=== PATIENT | female | born 1965 | race Caucasian/White ===

== ENCOUNTER 2020-07-01 14:45 | Emergency (ER) | payer OTHER ==
[~2020-07-01 14:45] MED LIST: AIMOVIG AU70 MG/1 ML IM; ALL DAY ALLERGY10 M3 PO; AMITRIPTYLINE PO; ASPIRIN EC81 MG PO; BENTYL10 MG PO; BREO ELLIPTA 11 EACH INH; CO-ENZYME Q101 EACH PO; COREG 3.125M3.125 MG PO; FLONASE ALLER15.8 ML; HCTZ12.5 MG PO; IMITREX SQ6 MG/0.5 M SC; LEXAPRO20 MG PO; MAG-OXIDE 400M400 MG PO; NAPROSYN375 MG PO; NEURONTIN300 MG PO; PHENERGAN25 M1 PO; PRILOSEC20 MG PO; PRINIVIL20 MG PO; PROCTOZONE-HC 230 GM TOP; RIBOFLAVIN400 MG PO; RIZATRIPTAN10 M1 PO; SUMAVEL DO4 MG/0.5 M; TROKENDI XR200 MG PO; VENTOLIN HFA IN18 GM INH; VITAMIN D1000 UNIT PO; VSL#3 DS PACKE1 EACH PO
[2020-07-01 16:01] LABS: BASOPHIL 0.7 % (0-2); HCT 41.3 % (37.0-47.0); HGB 12.9 g/dl (12.5-16.0); MCH 28.6 pg (25.0-31.0); MCHC 31.2 g/dL (32.0-36.0); MCV 91.6 fL (78.0-100.0); MONOCYTE 8.9 % (0-12); MPV 9.1 fL (6.0-9.5); NRBC 0; PLT 317 K/uL (150-400); RBC 4.51 M/uL (4.20-5.40); RDW 13.9 % (11.5-14.0); WBC 9.2 K/uL (4.0-10.5)
[2020-07-01 16:24] LABS: ALBUMIN 3.2 g/dL (3.4-5.0); ALKALINE PHOSHATASE 70 U/L (46-116); ALT 30 U/L (14-59); AST 27 U/L (15-37); BILIRUBIN - TOTAL 0.5 mg/dL (0.2-1.0); BUN 13 mg/dL (7-18); BUN/CREAT RATIO (CALC) 13.5 RATIO; CHLORIDE 108 mmol/L (98-107); CO2 (BICARBONATE) 26 mmol/L (21-32); CREATININE 0.96 mg/dL (0.51-0.95); GLOBULIN (CALCULATION) 3.9 g/dL; GLUCOSE 111 mg/dL (74-106); TOTAL PROTEIN 7.1 g/dL (6.4-8.2)
[2020-07-01 17:17] LABS: AMPHETAMINES NEGATIVE (NEGATIVE); BARBITURATES NEGATIVE (NEGATIVE); ECSTASY (MDMA) NEGATIVE (NEGATIVE); MARIJUANA (THC) NEGATIVE (NEGATIVE); METHADONE NEGATIVE (NEGATIVE); OPIATES NEGATIVE (NEGATIVE); OXYCODONE NEGATIVE (NEGATIVE)
[2020-07-01 17:18] LABS: BILIRUBIN NEGATIVE (NEGATIVE); BLOOD TRACE-LYSED Ery/uL (NEGATIVE); CLARITY CLEAR (CLEAR); COLOR YELLOW (YELLOW); GLUCOSE (U) NORMAL (NORMAL); LEUKOCYTES NEGATIVE Leu/uL (NEGATIVE); NITRITE NEGATIVE (NEGATIVE); PROTEIN NEGATIVE (NEGATIVE); UROBILINOGEN 0.2 mg/dL (0.2-1.0)
[2020-07-01 17:25] LABS: SQUAMOUS EPITHELIAL CELLS RARE; URINARY RBC RARE; URINARY WBC RARE
== END 2020-07-01 19:10 | disposition home or self-care (01) ==
LOC: FER 14:45
PROVIDERS: Emergency Medicine
DX: R55 Syncope and collapse (principal); R51.9 Headache, unspecified; R07.9 Chest pain, unspecified; I10 Essential (primary) hypertension; Z20.822 Contact with and (suspected) exposure to COVID-19
CPT/HCPCS: 36415; 70450; 71045; 80053; 80305; 81001; 84484; 85025; 93005; G0480; J0780; J1885; U0002

== ENCOUNTER 2020-08-28 18:32 | Emergency (ER) | payer OTHER ==
[2020-08-28 19:43] LABS: BASOPHIL 0.7 % (0-2); EOSINOPHIL 3.6 % (0-5); HCT 38.6 % (37.0-47.0); HGB 12.6 g/dl (12.5-16.0); LYMPHOCYTE 21.5 % (15-48); MCH 29.1 pg (25.0-31.0); MCHC 32.6 g/dL (32.0-36.0); MCV 89.1 fL (78.0-100.0); MONOCYTE 7.6 % (0-12); MPV 9.4 fL (6.0-9.5); NRBC 0; PLT 320 K/uL (150-400); RBC 4.33 M/uL (4.20-5.40); RDW 14.4 % (11.5-14.0); WBC 9.7 K/uL (4.0-10.5)
[2020-08-28 20:00] LABS: BUN/CREAT RATIO (CALC) 14.6 RATIO; CREATININE 0.82 mg/dL (0.51-0.95); POTASSIUM 4.2 mmol/L (3.5-5.1)
== END 2020-08-28 23:05 | disposition home or self-care (01) ==
LOC: FER 18:32
PROVIDERS: Nurse Practitioner Family
DX: G43.909 Migraine, unspecified, not intractable, without status migrainosus (principal); I10 Essential (primary) hypertension; J45.909 Unspecified asthma, uncomplicated; E78.5 Hyperlipidemia, unspecified; Z88.0 Allergy status to penicillin; Z91.030 Bee allergy status; Z88.8 Allergy status to other drugs, medicaments and biological substances; Z91.040 Latex allergy status; Z79.899 Other long term (current) drug therapy; Z79.82 Long term (current) use of aspirin
CPT/HCPCS: 36415; 70450; 72125; 80048; 85025; J1100; J1170; J1885; J2405; J7030

== ENCOUNTER 2020-10-15 19:07 | Emergency (ER) | payer OTHER ==
[2020-10-15 21:24] LABS: BASOPHIL 0.8 % (0-2); EOSINOPHIL 3.8 % (0-5); HCT 42.6 % (37.0-47.0); HGB 13.6 g/dl (12.5-16.0); LYMPHOCYTE 23.5 % (15-48); MCH 28.9 pg (25.0-31.0); MCHC 31.9 g/dL (32.0-36.0); MCV 90.6 fL (78.0-100.0); MONOCYTE 7.9 % (0-12); MPV 9.1 fL (6.0-9.5); NRBC 0; PLT 368 K/uL (150-400); RDW 14.2 % (11.5-14.0); WBC 8.8 K/uL (4.0-10.5)
[2020-10-15 21:29] LABS: INR 1.03 (0.9-1.2); PROTHROMBIN TIME 12.8 SECONDS (11.4-13.6); PTT 30.1 SECONDS (22.2-34.7)
[2020-10-15 21:34] LABS: ALBUMIN 3.4 g/dL (3.4-5.0); BILIRUBIN - TOTAL 0.4 mg/dL (0.2-1.0); BUN/CREAT RATIO (CALC) 10.7 RATIO; CREATININE 0.84 mg/dL (0.51-0.95); GLOBULIN (CALCULATION) 4.3 g/dL; POTASSIUM 3.7 mmol/L (3.5-5.1); TOTAL PROTEIN 7.7 g/dL (6.4-8.2)
== END 2020-10-16 01:44 | disposition home or self-care (01) ==
LOC: FER 19:07
PROVIDERS: Emergency Medicine Emergency Medical Services
DX: S06.0X0A Concussion without loss of consciousness, initial encounter (principal); G43.909 Migraine, unspecified, not intractable, without status migrainosus; I10 Essential (primary) hypertension; J45.909 Unspecified asthma, uncomplicated; K21.9 Gastro-esophageal reflux disease without esophagitis; Z88.0 Allergy status to penicillin; Z88.8 Allergy status to other drugs, medicaments and biological substances; Z91.030 Bee allergy status; Z91.040 Latex allergy status; Z79.899 Other long term (current) drug therapy; Z79.82 Long term (current) use of aspirin; W19.XXXA Unspecified fall, initial encounter; Y93.K1 Activity, walking an animal; Y92.480 Sidewalk as the place of occurrence of the external cause
CPT/HCPCS: 36415; 70450; 71045; 72125; 73080; 80053; 84484; 85025; 85610; 85730; 93005; 96372; G0480; J0780; J1100; J1200; J1885; J3030; J7030

== ENCOUNTER 2021-01-25 15:49 | Emergency (ER) | payer OTHER ==
[2021-01-25 17:10] LABS: BASOPHIL 0.8 % (0-2); HCT 41.7 % (37.0-47.0); LYMPHOCYTE 21.6 % (15-48); MCH 28.5 pg (25.0-31.0); MCHC 31.2 g/dL (32.0-36.0); MCV 91.4 fL (78.0-100.0); MPV 10.2 fL (6.0-9.5); NRBC 0; PLT 331 K/uL (150-400); RBC 4.56 M/uL (4.20-5.40); RDW 14.1 % (11.5-14.0); WBC 9.8 K/uL (4.0-10.5)
[2021-01-25 17:36] LABS: BUN/CREAT RATIO (CALC) 15.9 RATIO; CREATININE 1.07 mg/dL (0.51-0.95)
== END 2021-01-25 18:34 | disposition home or self-care (01) ==
LOC: FER 15:49
PROVIDERS: Emergency Medicine
DX: G43.909 Migraine, unspecified, not intractable, without status migrainosus (principal); R55 Syncope and collapse; E11.9 Type 2 diabetes mellitus without complications; Z90.49 Acquired absence of other specified parts of digestive tract; Z88.0 Allergy status to penicillin; Z88.7 Allergy status to serum and vaccine
CPT/HCPCS: 36415; 36600; 70450; 71045; 80048; 82803; 84484; 85025; 93005; J1200; J2405; J2765

== ENCOUNTER 2021-05-28 14:39 | Emergency (ER) | payer OTHER ==
[2021-05-28 15:29] LABS: BASOPHIL 0.9 % (0-2); EOSINOPHIL 3.4 % (0-5); HCT 42.1 % (37.0-47.0); HGB 13.6 g/dl (12.5-16.0); LYMPHOCYTE 21.2 % (15-48); MCH 29.7 pg (25.0-31.0); MCHC 32.3 g/dL (32.0-36.0); MCV 91.9 fL (78.0-100.0); MONOCYTE 8.2 % (0-12); MPV 9.5 fL (6.0-9.5); NEUTROPHIL 65.9 % (41-80); NRBC 0; PLT 375 K/uL (150-400); RBC 4.58 M/uL (4.20-5.40); RDW 14.1 % (11.5-14.0); WBC 8.9 K/uL (4.0-10.5)
[2021-05-28 15:41] LABS: ALBUMIN 3.6 g/dL (3.4-5.0); BILIRUBIN - TOTAL 0.4 mg/dL (0.2-1.0); BUN/CREAT RATIO (CALC) 12.7 RATIO; C-REACTIVE PROTEIN 1.7 mg/dL (<=0.90); CREATININE 1.02 mg/dL (0.51-0.95); GLOBULIN (CALCULATION) 3.8 g/dL; POTASSIUM 4.2 mmol/L (3.5-5.1); TOTAL PROTEIN 7.4 g/dL (6.4-8.2)
[2021-05-28 16:17] LABS: CORONAVIRUS 2019 SARS-COV-2 NEGATIVE (NEGATIVE); INFLUENZA A NAA NEGATIVE (NEGATIVE)
[2021-05-28 16:32] LABS: BILIRUBIN NEGATIVE (NEGATIVE); BLOOD TRACE-INTACT Ery/uL (NEGATIVE); CLARITY CLEAR (CLEAR); COLOR YELLOW (YELLOW); GLUCOSE (U) NORMAL (NORMAL); LEUKOCYTES NEGATIVE Leu/uL (NEGATIVE); NITRITE NEGATIVE (NEGATIVE); PROTEIN NEGATIVE (NEGATIVE); SPECIFIC GRAVITY 1.015 (1.001-1.030); UROBILINOGEN 0.2 mg/dL (0.2-1.0)
[2021-05-28 16:38] LABS: BACTERIA TRACE
== END 2021-05-28 17:35 | disposition home or self-care (01) ==
LOC: FER 14:39
PROVIDERS: Emergency Medicine
DX: R20.2 Paresthesia of skin (principal); E66.01 Morbid (severe) obesity due to excess calories; I10 Essential (primary) hypertension; E11.9 Type 2 diabetes mellitus without complications; Z20.822 Contact with and (suspected) exposure to COVID-19
CPT/HCPCS: 36415; 70450; 71045; 72131; 80053; 81001; 85025; 86140; 93005; U0002

== ENCOUNTER 2021-09-14 18:18 | Emergency (ER) | payer OTHER ==
[2021-09-15] MEDS ORDERED: BUTORPHANOL IN (00:03)
[2021-09-15] MEDS ORDERED: BUTORPHANO10 MG/1 ML IN (00:06)
== END 2021-09-15 00:31 | disposition home or self-care (01) ==
LOC: FER 18:18
DX: G43.909 Migraine, unspecified, not intractable, without status migrainosus (principal); I10 Essential (primary) hypertension; E11.9 Type 2 diabetes mellitus without complications; J45.909 Unspecified asthma, uncomplicated; Z88.0 Allergy status to penicillin; Z88.1 Allergy status to other antibiotic agents; Z88.6 Allergy status to analgesic agent; Z79.84 Long term (current) use of oral hypoglycemic drugs; Z91.040 Latex allergy status
CPT/HCPCS: 70450; J0595; J0780; J1200; J1885; J7030

== ENCOUNTER 2021-11-18 16:28 | Emergency (ER) | payer OTHER ==
[~2021-11-18 16:28] MED LIST changes: +BUTORPHANO10 MG/1 ML IN; +BUTORPHANOL IN
[2021-11-18] MEDS ORDERED: PREDNISONE50 MG PO (21:26)
== END 2021-11-18 21:35 | disposition home or self-care (01) ==
LOC: FER 16:28
DX: G43.909 Migraine, unspecified, not intractable, without status migrainosus (principal); E11.9 Type 2 diabetes mellitus without complications; I10 Essential (primary) hypertension; J45.909 Unspecified asthma, uncomplicated; Z79.84 Long term (current) use of oral hypoglycemic drugs; Z88.0 Allergy status to penicillin; Z88.1 Allergy status to other antibiotic agents; Z88.6 Allergy status to analgesic agent; Z91.040 Latex allergy status
CPT/HCPCS: J0595; J1100; J1200; J1885; J2405; J2765; J3475; J7030

== ENCOUNTER 2021-11-23 17:12 | Emergency (ER) | payer OTHER ==
[~2021-11-23 17:12] MED LIST changes: +PREDNISONE50 MG PO
[2021-11-23] MEDS ORDERED: NORCO 5-325 TA1 EACH PO (20:27)
== END 2021-11-23 20:31 | disposition home or self-care (01) ==
LOC: FER 17:12
DX: G43.909 Migraine, unspecified, not intractable, without status migrainosus (principal); I10 Essential (primary) hypertension; E11.9 Type 2 diabetes mellitus without complications; J45.909 Unspecified asthma, uncomplicated; Z88.0 Allergy status to penicillin; Z88.8 Allergy status to other drugs, medicaments and biological substances; Z28.310 Unvaccinated for COVID-19
CPT/HCPCS: J1885; J2270; J2405; J2765; J2930; J7030